=== PATIENT | female | born 1995 | race Caucasian/White ===

== ENCOUNTER 2024-06-05 02:45 | Emergency (ER) | payer SELFPAY ==
[~2024-06-05] VITALS: Ht 167.6 cm; Wt 60.0 kg
[2024-06-05 02:51] VITALS: TEMP 98.8; O2SAT 100
[2024-06-05 04:07] LABS: HEMATOCRIT. 41.4 % (36.0-48.0); HEMOGLOBIN. 13.7 g/dL (12.0-16.0); MEAN CORPUSCULAR HEMOGLOBIN 27.6 pg (28.0-32.0); MEAN CORPUSCULAR VOLUME 83.7 fL (81.0-99.0); MEAN PLATELET VOLUME 7.2 fl (7.4-10.4); PLATELET 248 x1000/uL (130-400); RED BLOOD CELL COUNT 4.95 mill/uL (4.2-5.4); RED CELL DISTRIBUTION WIDTH 13.4 % (11.6-14.6); WHITE BLOOD COUNT 14.3 x1000/uL (4.5-11.0)
[2024-06-05 04:09] LABS: DIFFERENTIAL COMMENT 1
[2024-06-05 04:23] LABS: CHLORIDE 103 mEq/L (98-107); POTASSIUM 3.3 mEq/L (3.5-5.1); SODIUM 134 mEq/L (136-145)
[2024-06-05 04:24] LABS: CALCIUM 8.9 mg/dL (8.7-10.4); CARBON DIOXIDE 25 mEq/L (21-32)
[2024-06-05 04:29] LABS: CREATININE 0.7 mg/dL (0.6-1.0); GLUCOSE 120 mg/dL (70-105)
[2024-06-05 04:30] LABS: TROPONIN I HIGH SENSITIVITY < 4 ng/L (3.0-34); UREA NITROGEN BLOOD < 5 mg/dL (9-23)
[2024-06-05] MEDS: SODIUM CHLORIDE 0.9% 1,000 ML IV ONE (04:46)
[2024-06-05] MEDS: ACETAMINOPHEN 325MG TABLET PO ONE (04:46)
[2024-06-05] MEDS: ONDANSETRON HCL 4MG/2ML INJ IV ONE (04:46)
[2024-06-05 05:19] LABS: HCG SCREEN NEGATIVE
[2024-06-05] MEDS ORDERED: POTASSIUM CHLORIDE 20MEQ/PACKET PO ONE (05:30)
[2024-06-05] MEDS: POTASSIUM CHLORIDE 20MEQ/PACKET PO NR (06:11)
[2024-06-05] MEDS: ACETAMINOPHEN 325MG TABLET PO NR (06:12)
[2024-06-05] MEDS: ONDANSETRON HCL 4MG/2ML INJ IV NR (06:12)
[2024-06-05 06:17] VITALS: BP 117/68; PULSE 98; RESP 16
[2024-06-05 12:12] LABS: PLATELET ESTIMATE NORMAL
== END 2024-06-05 06:20 | disposition home or self-care (01) ==
LOC: ER 02:45
DX: R55 Syncope and collapse (principal)
CPT/HCPCS: 99284; 96360; 80048; 84703; 85025; 84484; 36415; 93005; J7030